=== PATIENT | female | born 1985 | race African-American/Black ===

== ENCOUNTER 2016-07-25 20:46 | Emergency (ER) | payer MEDICAID ==
[~2016-07-25] VITALS: Ht 170.2 cm; Wt 67.4 kg
[2016-07-25 20:48] VITALS: BP 111/70
[2016-07-25] MEDS ORDERED: PREDNISONE 20MG TABLET PO ONE (21:15)
== END 2016-07-25 23:00 | disposition home or self-care (01) ==
LOC: ER 22:53
DX: J30.9 Allergic rhinitis, unspecified (principal); F41.9 Anxiety disorder, unspecified
CPT/HCPCS: 99283; J7512

== ENCOUNTER 2017-01-08 05:14 | Emergency (ER) | payer MEDICAID ==
[~2017-01-08] VITALS: Ht 172.7 cm; Wt 64.8 kg
[2017-01-08] MEDS ORDERED: BENZONATATE 100MG CAPSULE PO ONE (06:15)
[2017-01-08] MEDS ORDERED: DEXAMETHASONE 4MG/ML 1ML VIAL IM ONE (06:15)
[2017-01-08 07:24] VITALS: BP 114/78
== END 2017-01-08 07:28 | disposition home or self-care (01) ==
LOC: ER 05:14
DX: J20.9 Acute bronchitis, unspecified (principal); F41.9 Anxiety disorder, unspecified; F17.210 Nicotine dependence, cigarettes, uncomplicated
CPT/HCPCS: 71010; 81025; 96372; 99283; J1100; Z7610